=== PATIENT | female | born 1955 | race Caucasian/White ===

== ENCOUNTER 2018-11-30 06:45 | Day surgery (SDC) | payer BC, OTHER ==
[~2018-11-30 06:45] MED LIST: Lactated Ringers 1,000 ML IV SCH
[2018-11-30] MEDS ORDERED: Lidocaine 1% PF 2 ML SDV INJECT ONE (06:46)
[2018-11-30] MEDS ORDERED: Propofol 200 MG/20 ML SDV IV ONE (06:46)
--- NOTE | 2018-11-30 08:18 | PCM.OPNOTE ---
- General Post-Op/Procedure Note Date of Surgery/Procedure: 11/30/18 Operative Procedure(s): c scope Findings: nl exam Pre Op Diagnosis: screening Post-Op Diagnosis: nl exam Primary Surgeon: Grzegorz Love Anesthesia Provider: Aly Owen Pathology: none Complications: None Condition: Good Free Text/Narrative:: see dictation
--- NOTE | 2018-11-30 09:29 | OR ---
DATE OF OPERATION: 11/30/2018 SURGEON: Grzegorz Love MD PROCEDURE PERFORMED: Colonoscopy. PREOPERATIVE DIAGNOSIS: Need for screening C scope. POSTOPERATIVE DIAGNOSIS: Normal colon. INDICATIONS FOR PROCEDURE: This is a 63-year-old female who presents for colonoscopy. She is without complaints. Last one was 10 years ago. DESCRIPTION OF OPERATION: After an excellent IV sedation was administered, digital rectal exam was performed. No marked abnormality was noted. The flexible colonoscope was inserted and advanced to the cecum. Prep was excellent. Following findings were noted. Ascending colon, unremarkable. Transverse colon, unremarkable. Descending colon, unremarkable. Sigmoid and rectum, unremarkable. Colon was deflated as the scope was removed. The patient tolerated the procedure well and was taken to recovery in good condition. RECOMMENDATIONS: Repeat scope in 10 years. /[id number] /MODL
== END 2018-11-30 09:00 | disposition home or self-care (01) ==
LOC: FB.SDS 06:45
PROVIDERS: ATTEND Surgery
DX: Z12.11 Encounter for screening for malignant neoplasm of colon (principal); M54.9 Dorsalgia, unspecified; Z80.0 Family history of malignant neoplasm of digestive organs; Z79.899 Other long term (current) drug therapy
CPT/HCPCS: 45378; J2001; J2704; J7120